=== PATIENT | female | born 1965 | race Caucasian/White ===

== ENCOUNTER 2021-06-29 12:02 | Emergency (ER) | payer BC, OTHER ==
--- NOTE | 2021-06-29 14:00 | RAD REPORT ---
EXAM DESCRIPTION: CT - Head Brain Wo Cont - 06/29/2021 1:50 pm CLINICAL HISTORY: doesn't feel right, weakness COMPARISON: No comparisons TECHNIQUE: Axial 5 mm thick images of the head were obtained without IV contrast. All CT scans are performed using dose optimization technique as appropriate and may include automated exposure control or mA/KV adjustment according to patient size. FINDINGS: No intracranial hemorrhage, mass, edema or shift of mid-line structures. No acute infarcti on changes seen. No abnormal extra-axial fluid collections. Ventricles are normal. Mastoid air cells are clear. Bilateral maxillary sinus mucosal thickening present with small air-flui d levels. Mucosal thickening changes are present in the paranasal sinuses as well. No acute bony findings. IMPRESSION: No intracranial abnormality identified. Mucosal thickening and air-fluid levels are present in the maxillary sinuses. Correlation is needed w ith any acute sinusitis clinical findings.
[2021-06-29 14:02] LABS: Absolute Lymphocytes (CBC) 1.6 K/uL (0.7-4.9); Hematocrit 39.3 % (36.0-45.0); Lymphocytes % 23.4 % (15.3-44.8); MPV 7.9 fL (7.6-11.3); RBC Red Blood Cell Count 4.17 M/uL (3.86-4.86)
[2021-06-29 14:21] LABS: ALT/SGPT 32 U/L (12-78); AST/SGOT 19 U/L (15-37); Albumin 3.8 g/dL (3.4-5.0); Alkaline Phosphatase 79 U/L (45-117); BUN Blood Urea Nitrogen 10 mg/dL (7-18); Bicarbonate 26 mmol/L (21-32); Bilirubin Direct 0.2 mg/dL (0-0.2); Bilirubin Total 0.4 mg/dL (0.2-1.0); Glucose Level 112 mg/dL (74-106); Potassium 3.7 mmol/L (3.5-5.1); Protein, Total 7.8 g/dL (6.4-8.2); Sodium Level 137 mmol/L (136-145)
[2021-06-29 14:24] LABS: Protime INR 0.99
[2021-06-29 15:18] LABS: Urine Blood Negative (Negative); Urine Glucose Negative (Negative); Urine Protein Negative (Negative); Urine Specific Gravity <=1.005 (1.005-1.030)
[2021-06-29 15:44] LABS: Barbiturates NEGATIVE (NEGATIVE); Benzodiazepines NEGATIVE (NEGATIVE); Cocaine NEGATIVE (NEGATIVE); METHAMPHETAM NEGATIVE (NEGATIVE); Methadone NEGATIVE (NEGATIVE); Opiates NEGATIVE (NEGATIVE); Phencyclidine NEGATIVE (NEGATIVE); THC Cannibis NEGATIVE (NEGATIVE)
--- NOTE | 2021-06-29 16:05 | EDPHYS ---
Physician Documentation [facility] Name: Luisa Gibson Age: 55 yrs Sex: Female : 1965 Arrival Date: 06/29/2021 Time: 12:06 Bed 12 Private MD: DELMIS DEAN ED Physician Kendall Tyson HPI: 06/29 13:35 This 55 yrs old Female presents to ER via Ambulatory with complaints of Psych Problem, cp Doesn't Feel Right. 13:35 The patient presents to the emergency department with depression, difficulty cp concentrating, difficulty with memory and difficulty sleeping. 13:35 Onset: The symptoms/episode began/occurred for the past several weeks. Past psychiatric cp history: Prior diagnosis: no previous psychiatric diagnosis known, Psychiatric medications include: none. Associated signs and symptoms: Pertinent negatives: abdominal pain, chest pain, delusions, fever, hallucinations, homicidal ideation, paranoia, substance abuse, suicide ideation. Severity of symptoms: in the emergency department the symptoms are unchanged despite home interventions. Patient reports that son from cancer in September of 2020. Son was [place] of [place] and she was not able to visit him prior to passing. Historical: - Allergies: 12:35 No Known Allergies; aa5 - Home Meds: 12:35 None [Active]; aa5 - PMHx: 12:35 None; aa5 - PSHx: 12:35 None; aa5 - Immunization history:: Adult Immunizations unknown. - Social history:: Smoking status: Patient denies any tobacco usage or history of. ROS: 13:40 Constitutional: Negative for body aches, chills, fever, poor PO intake. cp 13:40 Eyes: Negative for injury, pain, redness, and discharge. cp 13:40 ENT: Negative for drainage from ear(s), ear pain, sore throat, difficulty swallowing, difficulty handling secretions. 13:40 Cardiovascular: Negative for chest pain, edema, palpitations. 13:40 Respiratory: Negative for cough, shortness of breath, wheezing. 13:40 Abdomen/GI: Negative for abdominal pain, nausea, vomiting, and diarrhea. 13:40 Neuro: Negative for altered mental status, headache, seizure activity, syncope. 13:40 Psych: Positive for insomnia, Negative for auditory hallucinations, visual hallucinations, homicidal ideation, suicide gesture, suicidal ideation. 13:40 All other systems are negative. Exam: 13:45 Constitutional: The patient appears in no acute distress, alert, awake, cp non-diaphoretic, non-toxic, well developed, well nourished, anxious. 13:45 Head/Face: Normocephalic, atraumatic. cp 13:45 Eyes: Periorbital structures: appear normal, Pupils: equal, round, and reactive to light and accomodation, Extraocular movements: intact throughout, Conjunctiva: normal, no exudate, no injection, Sclera: no appreciated abnormality, Lids and lashes: appear normal, bilaterally. 13:45 ENT: External ear(s): are unremarkable, Nose: is normal, Mouth: Lips: moist, Oral mucosa: pink and intact, moist, Posterior pharynx: Airway: no evidence of obstruction, patent. 13:45 Neck: ROM/movement: is normal, is supple, without pain, no range of motions limitations. 13:45 Chest/axilla: Inspection: normal. 13:45 Cardiovascular: Rate: tachycardic, Rhythm: regular, Edema: is not appreciated, JVD: is not appreciated. 13:45 Respiratory: the patient does not display signs of respiratory distress, Respirations: normal, no use of accessory muscles, no retractions, labored breathing, is not present, Breath sounds: are clear throughout, no decreased breath sounds, no stridor, no wheezing. 13:45 Abdomen/GI: Exam negative for discomfort, distension, guarding, Inspection: abdomen appears normal. 13:45 Neuro: Orientation: to person, place \T\ time. Mentation: is normal, Motor: moves all fours, strength is normal, Gait: is steady, at a normal pace, without difficulty. 13:45 Psych: Behavior/mood is cooperative, anxious, depressed, Affect is animated, Oriented to person, place, time, Patient has no thoughts/intents to harm self or others. Judgement / Insight is normal. Delusions/hallucinations are not present. 15:14 ECG was reviewed by the Attending Physician. cp Vital Signs: 12:28 BP 149 / 70; Pulse 102; Resp 16 S; Temp 99.2(TE); Pulse Ox 96% on R/A; Weight 92.99 kg aa5 (R); Height 5 ft. 9 in. (175.26 cm) (R); 15:00 Pulse 98; Resp 15; Pulse Ox 96% ; jl7 12:28 Body Mass Index 30.27 (92.99 kg, 175.26 cm) aa5 MDM: 13:07 Patient medically screened. cp 14:00 Differential diagnosis: drug withdrawal. acute psychotic break, depression, psychosis cp secondary to non-compliance. 16:04 Data reviewed: vital signs, nurses notes, lab test result(s), EKG, radiologic studies, cp CT scan. 16:04 Test interpretation: by ED physician or midlevel provider: ECG. Counseling: I had a cp detailed discussion with the patient and/or guardian regarding: the historical points, exam findings, and any diagnostic results supporting the discharge/admit diagnosis, lab results, radiology results, the need for outpatient follow up, for definitive care, a psychiatrist, to return to the emergency department if symptoms worsen or persist or if there are any questions or concerns that arise at home. Response to treatment: the patient's symptoms have mildly improved after treatment, and as a result, I will discharge patient. ED course: Patient continues to deny any suicidal and/or homicidal ideations at this time. 06/29 13:29 Order name: Acetaminophen; Complete Time: 14:36 cp 06/29 13:29 Order name: Basic Metabolic Panel; Complete Time: 14:36 cp 06/29 14:37 Interpretation: Normal except: GLUC 112; GFR 62. cp 06/29 13:29 Order name: CBC with Diff; Complete Time: 14:06 cp 06/29 14:06 Interpretation: Reviewed. cp 06/29 13:29 Order name: ETOH Level; Complete Time: 14:36 cp 06/29 14:37 Interpretation: Reviewed. cp 06/29 13:29 Order name: Hepatic Function; Complete Time: 14:36 cp 06/29 14:37 Interpretation: Normal except: GLOB 4.0; A/G 1.0. cp 06/29 13:29 Order name: PT-INR; Complete Time: 14:36 cp 06/29 13:29 Order name: Ptt, Activated; Complete Time: 14:36 cp 06/29 13:29 Order name: Salicylate; Complete Time: 14:36 cp 06/29 13:29 Order name: Urine Drug Screen; Complete Time: 15:48 cp 06/29 13:29 Order name: EKG; Complete Time: 13:30 cp 06/29 13:29 Order name: EKG - Nurse/Tech; Complete Time: 15:18 cp 06/29 13:29 Order name: CT Head Brain wo Cont; Complete Time: 14:06 06/29 14:06 Interpretation: Report reviewed. 06/29 15:18 Order name: Urine Dipstick-Ancillary; Complete Time: 15:34 EDMS 06/29 15:34 Interpretation: Normal except: UESTR 1+. cp 06/29 13:29 Order name: IV Saline Lock; Complete Time: 13:46 cp 06/29 13:29 Order name: Labs collected and sent; Complete Time: 13:46 cp 06/29 13:29 Order name: Urine Dipstick-Ancillary (obtain specimen); Complete Time: 15:18 cp EC:14 Rate is 83 beats/min. Rhythm is regular. TN interval is normal. QRS interval is normal. cp QT interval is normal. T waves are Inverted in lead aVR. Interpreted by me. Reviewed by me. Administered Medications: 14:04 Drug: Ativan (LORazepam) 1 mg Route: PO; iw 15:19 Follow up: Response: No adverse reaction jl7 Disposition: 18:17 Co-signature as Attending Physician, Kendall Tyson MD. rn Disposition Summary: 06/29/21 16:04 Discharge Ordered Location: Home cp Problem: new cp Symptoms: have improved cp Condition: Stable cp Diagnosis - Other depressive episodes cp Followup: cp - With: Private Physician - When: 1 - 2 days - Reason: Recheck today's complaints Discharge Instructions: - Discharge Summary Sheet cp - Complicated Grief cp - Managing Depression, Adult cp Forms: - Medication Reconciliation Form cp - Thank You Letter cp - Antibiotic Education cp - Prescription Opioid Use cp Prescriptions: - Ativan 1 mg Oral Tablet - take 1 tablet by ORAL route At bedtime As needed; 5 tablet; Refills: 0, Product cp Selection Permitted Signatures: Dispatcher [employer] Dania Nunez RN RN iw Nieto, Roman, MD MD rn Calderon, Audri, RN RN aa5 Sy Palma PA PA cp Leal, Jahala RN jl7 Corrections: (The following items were deleted from the chart) 14:54 13:29 Suicide Screening ([place]) ordered. cp cp 15:19 13:29 Urine Test ordered. cp jl7
--- NOTE | 2021-06-29 16:05 | ER ---
Nurse's Notes [facility] Name: Luisa Gibson Age: 55 yrs Sex: Female : 1965 Arrival Date: 06/29/2021 Time: 12:06 Bed 12 Private MD: DELMIS DEAN Diagnosis: Other depressive episodes Presentation: 06/29 12:28 Chief complaint: Chief complaint: Pt's friend states "she's been having mental issues aa5 and she's describing it as feeling like her mind twists and not thinking clearly". Pt denies feeling stressed or depressed, denies hallucinations. Pt states "I just don't feel right". Pt reports she has not been eating or sleeping, was prescribed sleeping pills by PCP without improvement. 12:28 Coronavirus screen: At this time, the client does not indicate any symptoms associated aa5 with coronavirus-19. Ebola Screen: No symptoms or risks identified at this time. Initial Sepsis Screen: Does the patient meet any 2 criteria? No. Patient's initial sepsis screen is negative. Does the patient have a suspected source of infection? No. Patient's initial sepsis screen is negative. Risk Assessment: Do you want to hurt yourself or someone else? Patient reports no desire to harm self or others. Onset of symptoms was June 2021. 12:28 Acuity: OUMOU 3 aa5 12:28 Method Of Arrival: Ambulatory aa5 Historical: - Allergies: 12:35 No Known Allergies; aa5 - Home Meds: 12:35 None [Active]; aa5 - PMHx: 12:35 None; aa5 - PSHx: 12:35 None; aa5 - Immunization history:: Adult Immunizations unknown. - Social history:: Smoking status: Patient denies any tobacco usage or history of. Screenin:00 Abuse screen: Denies threats or abuse. Denies injuries from another. Nutritional jl7 screening: No deficits noted. Tuberculosis screening: No symptoms or risk factors identified. Fall Risk IV access (20 points). Assessment: 15:00 General: Appears in no apparent distress. uncomfortable, Behavior is cooperative, jl7 anxious, flat. Pain: Denies pain. Neuro: Level of Consciousness is awake, alert, obeys commands, Oriented to person, place, time, situation. Cardiovascular: Patient's skin is warm and dry. Respiratory: Airway is patent Respiratory effort is even, unlabored, Respiratory pattern is regular, symmetrical. Derm: Skin is pink, warm \\T\\ dry. Vital Signs: 12:28 BP 149 / 70; Pulse 102; Resp 16 S; Temp 99.2(TE); Pulse Ox 96% on R/A; Weight 92.99 kg aa5 (R); Height 5 ft. 9 in. (175.26 cm) (R); 15:00 Pulse 98; Resp 15; Pulse Ox 96% ; jl7 12:28 Body Mass Index 30.27 (92.99 kg, 175.26 cm) aa5 ED Course: 12:06 Patient arrived in ED. am2 12:07 DELMIS DEAN is Private Physician. am2 12:16 Sy Palma PA is PHCP. cp 12:16 Kendall Tyson MD is Attending Physician. cp 12:28 Arm band placed on. aa5 12:35 Triage completed. aa5 13:29 Dania Mast RN is Primary Nurse. iw 13:46 Initial lab(s) drawn, by ar, sent to lab. Inserted saline lock: 20 gauge in right em1 forearm, using aseptic technique. Blood collected. 13:52 CT Head Brain wo Cont In Process Unspecified. EDMS 15:00 Patient has correct armband on for positive identification. Call light in reach. Adult jl7 w/ patient. 16:28 No provider procedures requiring assistance completed. IV discontinued, intact, jl7 bleeding controlled, No redness/swelling at site. Pressure dressing applied. Administered Medications: 14:04 Drug: Ativan (LORazepam) 1 mg Route: PO; iw 15:19 Follow up: Response: No adverse reaction jl7 Outcome: 16:04 Discharge ordered by . cp 16:28 Discharged to home ambulatory. jl7 16:28 Condition: stable 16:28 Discharge instructions given to patient, family, Instructed on discharge instructions, follow up and referral plans. medication usage, Demonstrated understanding of instructions, follow-up care, medications, Prescriptions given X 1. 16:28 Patient left the ED. jl7 Signatures: Dispatcher [employer] EDMS Dania Mast RN RN iw Bg [place] em1 Alyssa Hodges RN RN aa5 Sy Palma PA PA cp Leal, Jahala, RN RN jl7 Cantrell, Amee am2 Corrections: (The following items were deleted from the chart) 12:35 12:31 Arm band placed on aa5 aa5
[2021-06-29 20:22] VITALS: BP 149/70; TEMP 99.2; O2SAT 96
--- NOTE | 2021-06-30 09:33 | EKG ---
Test Date: 2021-06-29 Test Time: 15:11:31 Typist: PAVEL MEASUREMENT RESULTS: Intervals: Rate: 83 AR: 150 QRSD: 88 QT: 366 QTc: 430 [place]: P: 89 AR: 150 QRS: -32 T: -5 INTERPRETIVE STATEMENTS: Normal sinus rhythm Left axis deviation RSR' or QR pattern in V1 suggests right ventricular conduction delay Possible Anterior infarct, age undetermined Abnormal ECG No previous ECG available for comparison Electronically Signed On 06-30-21 09:31:50 CDT by Kvng Arndt
== END 2021-06-29 16:28 | disposition home or self-care (01) ==
LOC: ER 12:02
DX: F32.89 Other specified depressive episodes (principal)
CPT/HCPCS: 36415; 70450; 80048; 80076; 80307; 80320; 80329; 81003; 85025; 85610; 85730; 93005; 99284

== ENCOUNTER → 2024-02-23 | Day surgery (SDC) | payer OTHER ==
[2024-02-22 13:05] LABS: Absolute Eosinophils 0.1 K/uL (0-0.5); Absolute Monocytes 0.3 K/uL (0.1-1.3); Absolute Neutrophil 2.7 K/uL (1.8-8.0); Basophils % 0.7 % (0-1.3); Eosinophils % 1.6 % (0-4.4); Hematocrit 41.3 % (36.0-45.0); Hemoglobin 13.5 g/dL (12.0-15.0); Lymphocytes % 38.6 % (15.3-44.8); MCH 31.5 pg (27.0-35.0); MCHC 32.8 g/dL (32.0-36.0); MCV 96.3 fL (80-100); Monocytes % 5.7 % (3.3-12.3); Neutrophils % 53.4 % (41.7-73.7); Platelets 296 thou/uL (152-406); RBC Red Blood Cell Count 4.29 M/uL (3.86-4.86); Red Cell Distribution Width 13.5 % (12.1-15.2)
[2024-02-22 13:22] LABS: Anion Gap 6.9 mEq/L (5.0-15.0); Potassium 3.9 mEq/L (3.5-5.1)
[~2024-02-23] MED LIST: FENTANYL CITR 100 MCG/2 ML ONE; LIDOCAINE 2% MPF 5 ML VIAL ONE; MIDAZOLAM HCL 2 MG/2 ML INJ ONE; NA CHLORIDE 0.9% 1,000 ML ONE; ONDANSETRON 4 MG/2 ML VIAL ONE; SUGAMMADEX SODIUM 200 MG/2 ML VIAL IV ONE; dexAMETHasone 10 MG/ML VIAL ONE; propofoL 200 MG/20 ML VIAL IV ONE
[2024-02-23] MEDS: Ringers Lactate 1,000 ML IV ONE (06:20)
[2024-02-23] MEDS: LIDOCAINE HCL/EPINEPHRINE 20 ML MDV ONE (06:52)
--- NOTE | 2024-02-23 08:29 | OP ---
Date of Procedure: 02/23/2024 Surgeon: Ella Moreno MD Evaporator: No assistants. Preoperative Diagnoses: Postmenopausal bleeding, endometrial polyp. Postoperative Diagnoses: Postmenopausal bleeding, endometrial polyp. Procedures Performed: Operative hysteroscopy, polypectomy, and dilation and curettage with MyoSure L ite. Anesthesia: General with LMA. Complications: No complications. Drains: No drains. Condition: The patient's condition is stable. Findings: Posterior wall endometrial polyp that was removed completely. Adequate sampling was perfo rmed with the device. Indications: The patient is a 58-year-old with postmenopausal bleeding, evaluated with ultrasound. Endometrium was found to be thick and on office hysteroscopy, a posterior wall polyp was noted, which was very difficult to remove and endometrial sampling was inadequate. She was then consented for a hospital hysteroscopy, D and C, and a polypectomy with MyoSure Lite sb ce for adequate sampling to rule out atypia or malignancy. She was consented and brought to the [facility] [place]. Description Of Procedure: After re-consent in the preoperative area, she was taken back to the OR an d placed in a supine fashion. General anesthesia was given with LMA and patient was placed in a dors al lithotomy position using Rohit stirrups. Vulva, vagina, and perineum were prepped and draped in a sterile fashion using Betadine. Speculum was placed to expose the cervix. The cervix was very high and once exposed with 2 speculums, the anterior lip was grasped with a single-tooth tenaculum and di lated to 16-Serbian. The MyoSure Lite scope was taken and the entire system primed. The scope was in troduced through the cervical canal directly into the uterine cavity. Then the MyoSure Lite device w as inserted after removing the suction channel with set pressure at 80 mmHg. Polypectomy and D and C were performed with the device. Both tubal ostia were well visualized. There were some adhesions n ear the right cornual end. The polyp was entirely removed after the specimen was collected, the scop e was removed and the deficit was minimal. All instruments were removed. Instrument, needle, and sp onge counts were correct. The patient was recovered from anesthesia and taken to PACU in stable cond ition. EBL was minimal. She will follow up in 7-10 days for pathology followup and if the biopsy is negative, plan is to continue observation. MARY/VALERIA Voice ID: [id number] Report ID: [id number]
[2024-02-23 09:02] VITALS: BP 144/89; TEMP 97.1; O2SAT 99
--- NOTE | 2024-02-24 15:46 | EKG ---
Test Date: 2024-02-22 Test Time: 13:44:27 Vamp Cut Out Worker: ADOLFO MEASUREMENT RESULTS: Intervals: Rate: 72 [place]: 172 QRSD: 98 QT: 394 QTc: 431 [place]: P: 34 [place]: 172 QRS: -43 T: 39 INTERPRETIVE STATEMENTS: Normal sinus rhythm Left axis deviation Incomplete right bundle branch block Minimal voltage criteria for LVH, may be normal variant Anterolateral infarct, age undetermined Abnormal ECG Compared to ECG 06/29/2021 15:11:31 Incomplete right bundle-branch block now present Left ventricular hypertrophy now present Myocardial infarct finding still present Electronically Signed On 02-24-24 15:44:14 TIMBER CUTTER by Rm Sevilla
== END ==
LOC: OR 05:57
PROVIDERS: ATTEND Obstetrics & Gynecology
PROC: 0UDB8ZX Extraction of Endometrium, Via Natural or Artificial Opening Endoscopic, Diagnostic (ICD-10-PCS; principal; 2024-02-23 07:00)
DX: N95.0 Postmenopausal bleeding (principal); N84.0 Polyp of corpus uteri
CPT/HCPCS: 93005; 85025; 80048; 36415; 88305; 58558; J2704; J2003; J2250; J3010; J1100; J2405; J7120; J7030